=== PATIENT | female | born 1985 | race Two or more races ===

== ENCOUNTER → 2017-02-14 | Outpatient (CLI) | payer BC, OTHER ==
--- NOTE | 2017-02-14 11:22 | DI ---
PA AND LATERAL CHEST X-RAY, 02/14/2017 10:37 AM : Clinical History: Positive tuberculin test. Previous Exam: None at this facility. There is no acute soft tissue or bony abnormality. Heart size is normal. Lungs are clear. Mediastinal structures are normal. There are no pulmonary nodules. Reading: Normal chest x-ray. Comment: The order was only for a one view chest but a two-view chest was inadvertently performed. Th e patient was charged only for the one view chest x-ray.
== END ==
LOC: RAD 10:30
PROVIDERS: ATTEND Family Medicine
DX: R76.11 Nonspecific reaction to tuberculin skin test without active tuberculosis (principal)
CPT/HCPCS: 71010